=== PATIENT | male | born 1970 | race Caucasian/White ===

== ENCOUNTER 2018-03-13 18:47 | Emergency (ER) | payer SELFPAY ==
[~2018-03-13] VITALS: Ht 177.8 cm; Wt 82.9 kg
[~2018-03-13 18:47] MED LIST: AMOX875 PO; ASPI81 CHEW; CARV3.12 PO; CLOP75TA PO; MMW SSP; NITR0.4S SL; ROSU40 PO
[2018-03-13 18:53] VITALS: BP 170/93; PULSE 76; RESP 16; TEMP 98.1; O2SAT 98
[2018-03-13] MEDS ORDERED: CARV3.12 PO (19:34)
[2018-03-13] MEDS ORDERED: ROSU40 PO (19:34)
[2018-03-13] MEDS ORDERED: ASPI81CH6 CHEW (19:34)
[2018-03-13] MEDS ORDERED: PLAV75TA29 PO (19:34)
--- NOTE | 2018-03-13 19:51 | PD ---
HPI Chief Complaint: Skin Problem Time Seen by Provider: 19:45 Travel History International Travel<30 days: No Contact w/Intl Traveler<30days: No Traveled to known affect area: No History of Present Illness HPI 47-year-old male presents emergency department for evaluation of right thumb pain after obtaining a splinter from a sand spur 1 month ago.. Patient states that he has been trying to take out the remnants of the sand spur however he has been unsuccessful as developed what he thinks is a callus of the thumb. Patient states that there is becoming larger in size and painful. He decided to come in today because the pharmacist mentioned something about a bladder infection decided to come in for check. Denies fevers or chills. Denies numbness , tingling, or decreased ROM. Denies chronic medical issues. Pt does smoke tobacco. PFSH Past Medical History Hx Anticoagulant Therapy: Yes Cancer: No Cardiovascular Problems: No High Cholesterol: Yes Coronary Artery Disease: Yes Diminished Hearing: No Endocrine: No Genitourinary: No Immune Disorder: No Musculoskeletal: No Neurologic: No Psychiatric: No Reproductive: No Respiratory: No Immunizations Current: Yes Tetanus Vaccination: < 5 Years Influenza Vaccination: No ?: Not Past Surgical History Coronary Stent: Yes Social History Alcohol Use: Yes (every other weekend 5-6 drinks) Tobacco Use: Yes (1 - 2 ppd) Substance Use: Yes (THC POT) Allergies-Medications (Allergen,Severity, Reaction): Coded Allergies: aspirin (Verified Adverse Reaction, Mild, UPSET STOMACH, 03/13/18) codeine (Verified Adverse Reaction, Mild, upset stomach, 03/13/18) Reported Meds & Prescriptions Reported Meds & Active Scripts Active Keflex (Cephalexin) 500 Mg Cap 500 Mg PO Q8H 7 Days Reported Crestor (Rosuvastatin Calcium) 40 Mg Tab 40 Mg PO DAILY Aspirin Low Dose (Aspirin) 81 Mg Chew 81 Mg CHEW DAILY Plavix (Clopidogrel Bisulfate) 75 Mg Tab 75 Mg PO DAILY Carvedilol 3.125 Mg Tab 3.125 Mg PO BID Review of Systems Except as stated in HPI: all other systems reviewed are Neg Physical Exam Narrative GENERAL: WD, WN in NAD SKIN: Warm and dry. right thumb pad- 3mm round area, white callous vs pustule. no central puncta. difficult to assess fluctuance. no spontaneous expression of fluid. FROM of thumb. no edema or surrounding erythema. HEAD: Normocephalic. EYES: No scleral icterus. No injection or drainage. NECK: Supple, trachea midline. No JVD or lymphadenopathy. CARDIOVASCULAR: Regular rate and rhythm without murmurs, gallops, or rubs. RESPIRATORY: Breath sounds equal bilaterally. No accessory muscle use. MUSCULOSKELETAL: No cyanosis, or edema. BACK: Nontender without obvious deformity. No CVA tenderness. Data Data Last Documented VS Vital Signs Date Time Temp Pulse Resp B/P (MAP) Pulse Ox O2 Delivery O2 Flow Rate FiO2 03/13/18 18:53 98.1 76 16 170/93 (118) 98 Orders Orders Wound Care (03/13/18 20:51) Ed Discharge Order (03/13/18 20:59) MDM Medical Decision Making Medical Screen Exam Complete: Yes Emergency Medical Condition: Yes Differential Diagnosis Right thumb abscess, foreign body, callus Narrative Course 47-year-old male presents emergency department for evaluation of a left thumb lesion that started approximately 1 month ago. Patient states that he may have had a sand spur going to his thumb and he has been trying to take it out ever since then. He says that the area is becoming more tender. Patient decided to come in today because a pharmacist told him that the infection could spread to his blood and become a blood infection. Vital signs are stable. His exam findings demonstrate what appears to be a callus versus abscess of the thumb pad. Site was explored with an incision and drainage. No obvious foreign body seen but notes a deep callus which may have been a result of a foreign body. Patient will be discharged with Keflex prophylaxis as the lesion is on his thumb. Advised to perform wound care and to avoid complications. Advised follow-up with primary care physician. Return to emergency department worsening or persistent symptoms. Procedures Procedure Narrative INCISION AND DRAINAGE OF ABSCESS: The area was prepped and was sterilely draped. A digital digital block was performed to the right thumb using 2% lidocaine without epinephrine. a number 11 scalpel was used to make a 2mm incision across the area of the lesion. The lesion was drained,, and irrigated with normal saline. Unable to express any exudate. Site bleeding with manipulation. No obvious foreign bodies but a deep callus skin was noted. Sterile dressing applied. Patient advised on wound care Diagnosis Primary Impression: Foreign body finger Referrals: Primary Care Physician Additional Instructions: Change dressings daily for your thumb. Take all medications as prescribed. Follow-up with your primary care physician regarding wound care and evaluation. Scripts Cephalexin (Keflex) 500 Mg Cap 500 MG PO Q8H for Infection for 7 Days, #21 CAP 0 Refills Prov: Annie Osborne MD 03/13/18 Disposition: 01 DISCHARGE HOME Condition: Stable Rukhsana Martínez Mar 13, 2018 19:51
[2018-03-13] MEDS ORDERED: CEPH-460 PO (20:53)
== END 2018-03-13 21:10 | disposition home or self-care (01) ==
LOC: PHED 18:47 → PHEFT 21:10
DX: L02.512 Cutaneous abscess of left hand (principal); E78.00 Pure hypercholesterolemia, unspecified; I25.10 Atherosclerotic heart disease of native coronary artery without angina pectoris; F17.200 Nicotine dependence, unspecified, uncomplicated; Z79.02 Long term (current) use of antithrombotics/antiplatelets; Z79.82 Long term (current) use of aspirin; Z79.899 Other long term (current) drug therapy; Z88.6 Allergy status to analgesic agent; Z88.5 Allergy status to narcotic agent
CPT/HCPCS: 10060